=== PATIENT | female | born 1965 | race Hispanic/Latino ===

== ENCOUNTER → 2019-01-20 09:26 | Outpatient (CLI) | payer OTHER, SELFPAY ==
--- NOTE | 2019-01-20 | DI.US.S_ITS ---
PROCEDURE: US CAROTID DOPPLER BI INDICATIONS: DIZZINESS AND GIDDINESS TECHNIQUE: Color and pulse Doppler interrogation was performed of both carotid systems, with image documentation and velocity measurements. COMPARISON: None. FINDINGS: Stenosis calculations are based on SRU (Society of Radiologists in Ultrasound) criteria. Right side: Brachial blood pressure: 123/74 mm Hg. Common carotid artery peak systolic velocity: 63 cm/sec. Internal carotid artery peak systolic velocity: 81 cm/sec. Internal carotid artery end diastolic velocity: 29 cm/sec. External carotid artery peak systolic velocity: 66 cm/sec. ICA/CCA peak systolic ratio: 1.3. Montilla scale imaging description: Mild scattered plaque large normal appearing lymph node measuring up to 9 mm Percent internal carotid artery stenosis: Less than 50%. Vertebral artery: Flow direction is antegrade. Left side: Brachial blood pressure: 125/78 mm Hg. Common carotid artery peak systolic velocity: 64 cm/sec. Internal carotid artery peak systolic velocity: 1:15 cm/sec. Internal carotid artery end diastolic velocity: 38 cm/sec. External carotid artery peak systolic velocity: 62 cm/sec. ICA/CCA peak systolic ratio: 1.8. Montilla scale imaging description: Mild scattered plaque. Simple left colloid cyst incidentally noted. Morphologically normal appearing lymph node measuring up to 9 mm. Percent internal carotid artery stenosis: Less than 50%. Vertebral artery: Flow direction is antegrade. IMPRESSION: Less than 50% bilateral internal carotid artery stenosis. Prominent morphologically normal appearing lymph nodes bilaterally. Recommend clinical correlation and management. Left thyroid colloid cyst. Dictated by: Mitch BRUNO Interpreted: Veronica Mo MD on 01/20/2019 at 10:56 Approved by: Veronica Mo M.D. on 01/20/2019 at 15:12
== END ==
PROVIDERS: Visit Provider Physician Assistant
DX: R42 Dizziness and giddiness (principal); I65.23 Occlusion and stenosis of bilateral carotid arteries; E04.1 Nontoxic single thyroid nodule; R59.0 Localized enlarged lymph nodes
CPT/HCPCS: 93880

== ENCOUNTER → 2020-02-19 17:19 | Outpatient (CLI) | payer OTHER, SELFPAY ==
--- NOTE | 2020-02-19 | DI.MG.S_ITS ---
BILATERAL DIGITAL SCREENING MAMMOGRAM 3D/2D WITH CAD: 02/19/2020 CLINICAL: Routine screening. Comparison is made to exams dated: 01/21/2018 mammogram, 01/04/2017 mammogram, and 11/27/2015 mammogram - outside location. There are scattered fibroglandular elements in both breasts. Current study was also evaluated with a Computer Aided Detection (CAD) system. No significant masses, calcifications, or other findings are seen in either breast. There has been no significant interval change. IMPRESSION: NEGATIVE There is no mammographic evidence of malignancy. A 1 year screening mammogram is recommended. This exam was interpreted at Station ID: [id number]. NOTE: For mammograms, a report in lay terms will be sent to the patient. Approximately 15% of breast malignancies will not be visualized mammographically. In the management of a palpable breast mass, a negative mammogram must not discourage biopsy of a clinically suspicious lesion. Electronically Signed By: Arnold valencia/chiquis:02/19/2020 17:51:13 letter sent: Normal Exam ACR BI-RADS Category 1: Negative 3341F
== END ==
PROVIDERS: Referring Provider Internal Medicine; Visit Provider Internal Medicine
DX: Z12.31 Encounter for screening mammogram for malignant neoplasm of breast (principal)
CPT/HCPCS: 77063; 77067

== ENCOUNTER → 2020-09-30 10:15 | Outpatient (CLI) | payer OTHER, SELFPAY ==
[2020-09-30 11:58] LABS: COVID19 -Nasal RAPID Negative (Negative)
== END ==
PROVIDERS: Visit Provider Student in an Organized Health Care Education/Training Program
DX: Z01.812 Encounter for preprocedural laboratory examination (principal); Z20.822 Contact with and (suspected) exposure to COVID-19
CPT/HCPCS: 87635

== ENCOUNTER 2020-10-02 09:50 | Day surgery (SDC) | payer OTHER, SELFPAY ==
[2020-10-02] VITALS (13 sets, daily range): BP systolic 120–154; BP diastolic 65–86; PULSE 52–63; RESP 8–14; TEMP 36.5–37.1; O2SAT 88–99; BMI 24.2
--- NOTE | 2020-10-02 | PATH_ITS ---
[facility] Accession Number: [id number] . 01 Material submitted: . gastrointestinal site - GASTRIC BIOPSY . 01 Clinical history: . A: GASTRIC BIOPSY R/O HP . 02 Diagnosis: Stomach, Biopsy: Antral and body-type mucosa with mild chronic gastritis. Negative for Helicobacter by immunohistochemistry. Negative for intestinal metaplasia. Negative for dysplasia and malignancy. [facility] 10/08/2020 1426 Local . 02 Electronically signed: . Elva Hernández MD, Pathologist NPI- [id number] . 01 Gross description: . GASTRIC BIOPSY: Received in formalin are 4 fragment(s) of eli, soft tissue measuring 0.1 x 0.1 x 0.1 cm to 0.5 x 0.2 x 0.2 cm submitted entirely in 1 cassette(s) /MAURICIO 10/03/20201958 Local . 02 Microscopic: . An immunohistochemical stain was performed to evaluate for Helicobacter organisms and is negative. The control stain showed appropriate reactivity. . * This test was developed and its performance characteristics determined by [facility]. It has not been cleared or approved by the U.S. Food and Drug Administration. The FDA has determined that such clearance or approval is not necessary. This test is used for clinical purposes. It should not be regarded as investigational or for research. . 02 Pathologist provided ICD-10: K21.9 . 02 CPT . 445509, [id number] Performed at: 01 [facility] [address] [place] [address], [place], [place] [id number] MD Arnold Barakat MD Phone: [phone] Performed at: 02 [facility] [id number] [place], [place] [id number] MD Elva Hernández MD Phone: [phone]
--- NOTE | 2020-10-02 07:58 | PM.HP.1 ---
History of Present Illness History of Present Illness Date Patient Seen: 10/02/20 Chief complaint: SDC *$63 Copay* Narrative: 55-year-old filipina female with a history of GERD and esophageal dysphagia seen at our office on 08/22/2020 here for further evaluation by means of upper endoscopy Patient History Medical History (Updated 10/02/20 @ 10:07 by Angelina Barton RN) Hypertension Meds Home Medications and Allergies Home Medications Medication Instructions Recorded Confirmed Type amlodipine 10/02/20 History cetirizine mg 10/02/20 History Allergies Allergy/AdvReac Type Severity Reaction Status Date / Time procaine [From Novocain] Allergy Intermediate Palpitation Verified 10/02/20 10:09 s Exam Narrative Exam Narrative: General: Patient is well developed, not in apparent distress Cardiovascular: Regular rate and rhythm, no murmurs, rubs, or gallops; no evidence of edema; no palpable abdominal aortic aneurysm Gastrointestinal: Normoactive bowel sounds, soft, nontender, nondistended, no rebound tenderness, no hepatosplenomegaly, no evidence of hernia Assessment & Plan Assessment & Plan narrative: 55-year-old female with a history of GERD and esophageal dysphagia here for further evaluation by means of EGD Regarding the procedure(s), the risks and potential complications, benefits, and alternatives (including not doing the procedure) were discussed with the patient. The risks include but are not limited to bleeding, splenic injury, infection, perforation which may require surgical intervention, missed lesions, and adverse reactions to sedative medicines. After a question and answer period, the patient agreed to proceed with the procedure(s) and gives informed consent.
[2020-10-02] MEDS: SODIUM CHLORIDE 0.9% 1,000 ML 70 ML IV (10:20)
--- NOTE | 2020-10-02 10:42 | P.OP.ENDO_ITS ---
Operative Date/Time/Diagnoses Date of procedure: 10/02/20 Procedure Notes Procedure in detail: Surgeon: Brett Mohamud MD Procedure: Esophagogastroduodenoscopy with __ and colonoscopy with __ Preoperative diagnosis: __ Postoperative diagnosis: __ Medications: Conscious sedation using __ mg IV of Midazolam and __ mcg IV of Fentanyl Preanesthesia Assessment An H and P was performed/updated and the Px?s ASA class is __. The procedure was discussed in detail with the patient. The potential risks and complications including infection, bleeding, missed lesions, perforation, need for surgery in case of perforation, prolonged hospital stay, and were explained. A brief question and answer period was allotted and once all questions were answered, informed consent was obtained. The patient was brought back to the procedure room and placed on standard monitoring. The patient?s vital signs were monitored continuously throughout the entire procedure. Prior to starting, a timeout was performed to confirm the patient?s identity, allergies, medications, and procedure. Procedure in detail The patient was placed in left lateral decubitus position and a bite block was inserted. The tip of the upper endoscope was placed into the mouth and advanced without difficulty under direct visualization into the esophagus. Esophagus: The visualized esophagus appeared normal with a regular Z-line at 33 cm from the incisors. There is no evidence of stenosis or esophageal rings Stomach: There was note of antral erosions which were scattered and diminutive in size. Biopsies were performed of the gastric body and antrum for H pylori with minimal bleeding. Retroflexion in the stomach revealed no lesions in the cardia or fundus. There was no evidence of a hiatal hernia Duodenum: The visualized duodenal mucosa was normal up to the 2nd portion of the duodenum The patient tolerated the procedure well and will be brought back to the recovery area to be discharged once criteria are met. The total physician intraservice time was 10 minutes. Complications There were no complications and estimated blood loss was minimal. Recommendations Resume previous diet Change omeprazole dosing to 30 minutes prior to breakfast OR prior to dinner Follow-up pathology results Schedule for right upper quadrant ultrasound Call our office ([facility]) to schedule follow-up with Dr. Ronquillo An emergency contact number was given to the patient for any complications related to the procedure
[2020-10-02] MEDS: fentaNYL 250 MCG/5 ML INJ IV (10:45)
[2020-10-02] MEDS: MIDAZOLAM 5 MG/5 ML VIAL IV (10:47)
--- NOTE | 2020-10-02 11:55 | SUR.PHASEII ---
Phase II care by Keeley Barton RN
== END 2020-10-02 11:55 | disposition home or self-care (01) ==
PROVIDERS: PCP Family Medicine; Referring Provider Internal Medicine Gastroenterology; Visit Provider Internal Medicine Gastroenterology
PROC: 0DJ08ZZ Inspection of Upper Intestinal Tract, Via Natural or Artificial Opening Endoscopic (ICD-10-PCS; CPT 43235; principal; 2020-10-02 11:00)
DX: K29.50 Unspecified chronic gastritis without bleeding (principal); R13.10 Dysphagia, unspecified; K21.9 Gastro-esophageal reflux disease without esophagitis; I10 Essential (primary) hypertension; E78.5 Hyperlipidemia, unspecified; F41.9 Anxiety disorder, unspecified; F32.9 Major depressive disorder, single episode, unspecified
CPT/HCPCS: 43239; J2250; J3010

== ENCOUNTER → 2021-02-24 17:15 | Outpatient (CLI) | payer OTHER, SELFPAY ==
--- NOTE | 2021-02-24 17:18 | DI.MG.S_ITS ---
BILATERAL DIGITAL SCREENING MAMMOGRAM 3D/2D WITH CAD: 02/24/2021 CLINICAL: Routine screening. Comparison is made to exams dated: 02/19/2020 mammogram - [facility], 01/21/2018 mammogram, and 01/04/2017 mammogram - outside location. There are scattered fibroglandular elements in both breasts. Current study was also evaluated with a Computer Aided Detection (CAD) system. No significant masses, calcifications, or other findings are seen in either breast. There has been no significant interval change. IMPRESSION: NEGATIVE There is no mammographic evidence of malignancy. A 1 year screening mammogram is recommended. This exam was interpreted at Station ID: [id number]. NOTE: For mammograms, a report in lay terms will be sent to the patient. Approximately 15% of breast malignancies will not be visualized mammographically. In the management of a palpable breast mass, a negative mammogram must not discourage biopsy of a clinically suspicious lesion. Electronically Signed By: Zay sorto/chiquis:02/25/2021 09:12:21 letter sent: Normal Exam ACR BI-RADS Category 1: Negative 3341F
== END ==
PROVIDERS: PCP Family Medicine; Referring Provider Family Medicine; Visit Provider Family Medicine
DX: Z12.31 Encounter for screening mammogram for malignant neoplasm of breast (principal)
CPT/HCPCS: 77063; 77067

== ENCOUNTER 2024-01-13 08:02 | Day surgery (SDC) | payer OTHER, SELFPAY ==
[2024-01-13] MEDS: LACTATED RINGERS 1,000 ML 42 ML IV (08:35)
[2024-01-13 08:46] VITALS: BP 136/74; PULSE 55; RESP 16; TEMP 36.2; O2SAT 99
--- NOTE | 2024-01-13 08:52 | P.HP_ITS ---
History of Present Illness History of Present Illness Date Patient Seen: 01/13/24 Time Patient Seen: 08:53 Chief complaint: Colonoscopy Narrative: Maci is a 58 year old woman here for a colonoscopy. She had one years ago and no polyps were found. She has no family history of colon cancer. [facility] Medical History (Updated 01/13/24 @ 08:54 by Hossein Hernandes MD) Hypertension Social History household members: spouse Smoking Status: Never smoker alcohol intake: current Meds Home Medications and Allergies Home Medications Medication Instructions Recorded Confirmed Type amlodipine 2.5 mg tablet 2.5 mg PO DAILY 10/02/20 01/13/24 History cetirizine 10 mg tablet mg 10/02/20 History atorvastatin 20 mg tablet 20 mg PO DAILY 01/13/24 01/13/24 History Allergies Allergy/AdvReac Type Severity Reaction Status Date / Time procaine [From Novocain] Allergy Intermediate Palpitation Verified 01/13/24 08:39 s Exam Vital Signs (past 8 hours): - 01/13/24 08:46 Temperature 97.1 F L Pulse Rate 55 L Respiratory Rate 16 Blood Pressure 136/74 Pulse Oximetry 99 Oxygen Delivery Method Room Air Oxygen Delivery Method Room Air Const General: healthy appearing Resp Effort & Inspection: normal respiratory effort Assessment & Plan Assessment and plan (1) Colon cancer screening: Status: Acute Plan We reviewed the risks and benefits of colonoscopy and she we would like to proceed. Time-Based Coding :: [TOTAL MINUTES] spent with patient and on the chart (including review of chart, obtaining history, exam, reviewing outside data, placing orders, documenting exam and treatment plan, and counseling patient) on [DATE].
--- NOTE | 2024-01-13 09:52 | PM.OP.COLON ---
Operative Date/Time/Diagnoses Date of procedure: 01/13/24 Time of procedure: 09:52 Pre-op diagnosis: Colon cancer screening Post-op diagnosis: same Procedure & Clinicians Study performed: Colonoscopy Same procedure as scheduled: Yes Surgeon: Hossein Hernandes Procedure Notes Procedure in detail: Surgeon: Hossein Hernandes MD Anesthesia: Emelina Wick MD Procedure: The patient was brought to the endoscopy suite, placed in left lateral decubitus position. The patient was connected to monitoring devices. A time-out was performed. Sedation was administered. Once the patient was adequately sedated, a digital rectal exam was performed and was normal. The scope was then inserted and advanced to the cecum where the appendiceal orifice was identified and photographed. The scope was then slowly withdrawn over greater than 6 minutes. The mucosa was thoroughly inspected. No abnormalities were identified. The scope was retroflexed in the rectum. No abnormalities were identified. The scope was straightened and removed. The patient was awakened and brought to recovery. Scope withdrawal time: 6 minutes Sedation time: 9 minutes EBL: 0 Findings: Normal colon Post-procedure Recommendations: Colonoscopy in 10 years Disposition: PACU
[2024-01-13 09:55] VITALS: BP 91/54; PULSE 60; RESP 13; TEMP 36.4; O2SAT 98
[2024-01-13 10:00] VITALS: BP 98/59; PULSE 60; RESP 14; TEMP 36.4; O2SAT 100
[2024-01-13 10:05] VITALS: BP 108/59; PULSE 67; RESP 20; TEMP 36.4; O2SAT 99
[2024-01-13 10:08] VITALS: BP 105/70; PULSE 61; RESP 20; O2SAT 100
== END 2024-01-13 10:12 | disposition home or self-care (01) ==
PROVIDERS: Referring Provider Surgery; Visit Provider Surgery
PROC: 0DJD8ZZ Inspection of Lower Intestinal Tract, Via Natural or Artificial Opening Endoscopic (ICD-10-PCS; CPT 45378; principal; 2024-01-13 09:15)
DX: Z12.11 Encounter for screening for malignant neoplasm of colon (principal)
CPT/HCPCS: 45378; J2704